=== PATIENT | female | born 1990 | race Caucasian/White ===

== ENCOUNTER 2020-06-21 15:22 | Emergency (ER) | payer OTHER ==
[2020-06-21] MEDS ORDERED: IBUPROFEN800 MG PO (17:53)
== END 2020-06-21 18:11 | disposition home or self-care (01) ==
LOC: ER1 15:22
DX: S93.402A Sprain of unspecified ligament of left ankle, initial encounter (principal); X58.XXXA Exposure to other specified factors, initial encounter; Y92.89 Other specified places as the place of occurrence of the external cause; F17.210 Nicotine dependence, cigarettes, uncomplicated
CPT/HCPCS: 73610; 99283